=== PATIENT | female | born 1960 | race Caucasian/White ===

== ENCOUNTER 2018-12-15 01:16 | Outpatient (CLI) | payer BC, SELFPAY ==
--- NOTE | 2018-12-15 11:22 | DI.MAMMO_ITS ---
EXAM: MG MAMMO SCREENING CLINICAL HISTORY: SCREENING, Z12.31. TECHNIQUE: Mammograms were interpreted according to the usual protocol including computer analysis w [employer] CAD system, tomosynthesis and C-view imaging. COMPARISON: Comparison is made with prior exams. FINDINGS: The breast tissue is of fatty radiodensity. There is no mass. There are no suspicious calcifications and there has been no appreciable interval change when compared with prior images. IMPRESSION: No evidence of malignancy, category 1, yearly screening mammography is recommended. BI-RADS category A. BI-RADS Cat 1 - Negative. Breast Density - Category A - Almost entirely fatty.
== END 2018-12-15 01:36 ==
PROVIDERS: PCP Family Medicine; Visit Provider Nurse Practitioner Family
DX: Z12.31 Encounter for screening mammogram for malignant neoplasm of breast (principal)
CPT/HCPCS: 77063; 77067

== ENCOUNTER 2019-06-02 08:18 | Outpatient (REF) | payer BC, SELFPAY ==
[2019-06-02 13:10] LABS: ALT 37 U/L (14-59); Anion Gap 5.9 mmol/L (3-11); BUN 16 mg/dL (7-18); CO2 32.1 mmol/L (21.0-32.0); Calcium 9.1 mg/dL (8.5-10.1); Calculated LDL 176 mg/dL (<100); Chloride 101 mmol/L (98-107); Cholesterol 261 mg/dL (<200); Glucose 168 mg/dL (74-106); HDL Cholesterol 66 mg/dL (40-60); Potassium 5.3 mmol/L (3.5-5.1); Sodium 139 mmol/L (136-145); Triglyceride 95 mg/dL (<150)
== END 2019-06-02 08:38 ==
LOC: NCHCN 08:18
PROVIDERS: PCP Family Medicine; Visit Provider Nurse Practitioner Family
DX: E78.5 Hyperlipidemia, unspecified (principal); E11.9 Type 2 diabetes mellitus without complications
CPT/HCPCS: 80048; 80061; 84460

== ENCOUNTER 2020-06-30 15:58 | Outpatient (REF) | payer BC, SELFPAY ==
[2020-06-30 15:04] LABS: ALT 39 U/L (14-59); AST 21 U/L (15-37); Anion Gap 11.9 mmol/L (3-11); BUN 15 mg/dL (7-18); CO2 28.1 mmol/L (21.0-32.0); CREATININE 0.8 mg/dL (0.55-1.02); Calcium 9.1 mg/dL (8.5-10.1); Calculated LDL 72 mg/dL (<100); Chloride 101 mmol/L (98-107); Cholesterol 159 mg/dL (<200); Glucose 159 mg/dL (74-106); HDL Cholesterol 68 mg/dL (40-60); Potassium 4.7 mmol/L (3.5-5.1); Sodium 141 mmol/L (136-145); Triglyceride 95 mg/dL (<150)
== END 2020-06-30 15:59 | disposition home or self-care (01) ==
LOC: NCHCN 15:58
PROVIDERS: PCP Family Medicine; Visit Provider Nurse Practitioner Family
DX: E78.5 Hyperlipidemia, unspecified (principal); E11.9 Type 2 diabetes mellitus without complications
CPT/HCPCS: 80048; 80061; 84450; 84460

== ENCOUNTER 2020-08-04 15:36 | Outpatient (REF) | payer BC, SELFPAY ==
--- NOTE | 2020-08-04 14:05 | PAPFT_PTH ---
PATIENT: Sari Ramsey LOC: [facility]#:[id number] AGE/SX: 60/F ROOM: RE08/04/[address]: Gloria Harper : 1960 BED: DIS: 08/04/2020 SPEC #: [id number] RECD: 08/07/20 12:56 STATUS: DESTINY REDeepa #: [id number] GREGORY: 08/04/20 14:[address]: Gloria Harper DEPT: [facility] Cytology RECD BY: Joyce Daniels ENTERED: 08/07/20 12:57 SP TYPE: PAPFT OTHR DR: Niesha France Tissues: 1 - CX/ENDOCX FOR PAP SMEARS Procedures: PAP THIN PREP/UVM Screening HPV DNA PROBE Comments: [id number]
== END 2020-08-04 15:37 | disposition home or self-care (01) ==
LOC: NCHCN 15:36
PROVIDERS: PCP Family Medicine; Visit Provider Nurse Practitioner Family
DX: Z00.00 Encounter for general adult medical examination without abnormal findings (principal); Z12.4 Encounter for screening for malignant neoplasm of cervix; Z01.419 Encounter for gynecological examination (general) (routine) without abnormal findings; Z11.51 Encounter for screening for human papillomavirus (HPV)
CPT/HCPCS: 88142; 87624

== ENCOUNTER 2020-08-28 02:36 | Outpatient (CLI) | payer BC, SELFPAY ==
--- NOTE | 2020-08-28 | DI.MAMMO_ITS ---
Exam(s) MAMMO SCREENING EXAM: MAMMO SCREENING CLINICAL HISTORY: SCREENING, Z12.39 TECHNIQUE: Bilateral full field digital CC and MLO mammographic images were obtained with 3D tomosyn thesis and utilizing computer aided detection (CAD). COMPARISON: Available for comparison. FINDINGS: Masses/Architectural Distortion: None seen. Microcalcifications: No suspicious pleomorphic-type are seen. Skin Thickening/Nipple Retraction: None. IMPRESSION: 1. No significant interval change with no specific features of malignancy noted. 2. Unless there is more urgent need, screening mammography is recommended, as per [place] guidelines. BI-RADS Category 1 - Negative Breast Density - Category A - Almost entirely fatty Breast density category C or D implies that the patient has dense breast tissue. Dense breast tissue is very common and is not abnormal but dense breast tissue can make it harder to find cancer on a ma mmogram. Also, dense breast tissue may increase their breast cancer risk. This information about the result of the mammogram report was provided to the patient to raise their awareness. Use this report when you speak with the patient about their risks for breast cancer, which includes their family hist ory. At that time, you may recommend for more screening tests (Ultrasound or MRI) as they might be us eful based on their risk. A negative radiographic report should not delay biopsy if a dominant or clinically suspicious mass is present. Up to ten percent of cancers are not identified on mammography. A negative report may reinforce clinical impression. Adenosis and dense breasts may obscure an underlying neoplasm. False positive reports average 6 to 10%. Patient will receive a letter notifying them of these results.
== END 2020-08-28 02:56 ==
PROVIDERS: PCP Family Medicine; Visit Provider Nurse Practitioner Family
DX: Z12.31 Encounter for screening mammogram for malignant neoplasm of breast (principal)
CPT/HCPCS: 77063; 77067

== ENCOUNTER 2021-05-15 14:03 | Outpatient (REF) | payer BC, SELFPAY ==
[2021-05-15 15:29] LABS: HCT 43.1 % (36.0-46.0); HGB 14.3 g/dL (11.2-15.7); MCH 29.2 pg (27.0-33.0); MCHC 33.2 % (32.0-36.0); MPV 12.5 fL (8.0-11.0); Platelet Count 261 10^3/uL (130-400); RDW-SD 38.5 fL; WBC 7.25 10^3/uL (4.4-10.8)
[2021-05-15 15:38] LABS: ALT 74 U/L (14-59); AST 40 U/L (15-37); Albumin 3.7 g/dL (3.4-5.0); Alkaline Phosphatase 75 U/L (46-116); BUN 11 mg/dL (7-18); Bilirubin, Total 0.5 mg/dL (0.2-1.0); CREATININE 0.9 mg/dL (0.55-1.02); Chloride 102 mmol/L (98-107); Glucose 227 mg/dL (74-106); Potassium 4.3 mmol/L (3.5-5.1); Sodium 141 mmol/L (136-145); Total Protein 6.9 g/dL (6.4-8.2)
[2021-05-15 15:45] LABS: Hemoglobin A1C 8.3 % (<5.7)
== END 2021-05-15 14:04 | disposition home or self-care (01) ==
LOC: NCHCN 14:03
PROVIDERS: PCP Family Medicine; Visit Provider Nurse Practitioner Family
DX: E11.9 Type 2 diabetes mellitus without complications (principal); E66.9 Obesity, unspecified; M25.512 Pain in left shoulder
CPT/HCPCS: 80053; 85027; 83036

== ENCOUNTER → 2022-01-09 12:51 | Outpatient (CLI) | payer BC, SELFPAY ==
--- NOTE | 2022-01-09 12:49 | DI.RAD_ITS ---
Exam(s) XR RIBS LT W PA LAT CHEST EXAM: XR RIBS LT W PA LAT CHEST CLINICAL HISTORY: LEFT SIDED RIB PAIN R07.81, CONCERN FOR POSSIBLE FX. TECHNIQUE: 2D digital imaging was performed. COMPARISON: CR LEFT SHOULDER COMPLETE from 01/31/2016 FINDINGS: Total 6 views: 4 views left rib cage and 2 view chest x-ray LEFT RIB CAGE-FOUR VIEWS: There is a mild irregularity at the costochondral junction of the 8th left rib, possibly representing fracture at this level. Chest x-ray-two views: Heart size normal. Mediastinum is not widened. No infiltrates nor pleural ef fusions. No pneumothorax. Moderately elevated right hemidiaphragm noted. Healed fracture of the le ft humerus head-neck noted. IMPRESSION: Left 8th rib finding as described above, subtle but possibly representing fracture at costochondral j unction. Correlation with site of tenderness is recommended. No acute pulmonary findings. DATA REPOSITORY: RADIATION DOSE DELIVERED:
== END ==
PROVIDERS: PCP Family Medicine; Visit Provider Physician Assistant Medical
DX: R07.81 Pleurodynia (principal)
CPT/HCPCS: 71046; 71100

== ENCOUNTER 2022-03-07 11:37 | Outpatient (REF) | payer BC, SELFPAY ==
[2022-03-07 14:23] LABS: Abs Immature Grans 0.04 10^3/uL (0.0-0.06); Absolute Basophil Count 0.03 10^3/uL (0.0-0.2); Absolute Eosinophil Count 0.07 10^3/uL (0.0-0.7); Absolute Monocyte Count 0.63 10^3/uL (0.1-0.8); Absolute Neutrophil Count 6.95 10^3/uL (1.2-6.7); Basophils % 0.3; Eosinophils % 0.7; HCT 51.2 % (36.0-46.0); HGB 17.2 g/dL (11.2-15.7); Immature Grans % 0.4; Lymphocytes % 21.4; MCH 29.2 pg (27.0-33.0); MCHC 33.6 % (32.0-36.0); MCV 87 fL (80-95); MPV 11.8 fL (8.0-11.0); Monocytes % 6.4; Neutrophils % 70.8; Platelet Count 346 10^3/uL (130-400); RBC 5.89 10^6/uL (3.93-5.22); RDW 11.9 % (11.7-14.6); RDW-SD 38.2 fL; WBC 9.82 10^3/uL (4.4-10.8)
[2022-03-07 14:34] LABS: ALT 61 U/L (14-59); AST 29 U/L (15-37); Albumin 4.3 g/dL (3.4-5.0); Alkaline Phosphatase 91 U/L (46-116); Anion Gap 8.3 mmol/L (3-11); BUN 14 mg/dL (7-18); Bilirubin, Total 0.6 mg/dL (0.2-1.0); CO2 28.7 mmol/L (21.0-32.0); CREATININE 0.9 mg/dL (0.55-1.02); Calcium 9.5 mg/dL (8.5-10.1); Chloride 98 mmol/L (98-107); Estimated GFR 73.19 (mL/min/1.73m2); Glucose 138 mg/dL (74-106); Lipase 65 U/L (73-393); Potassium 4.4 mmol/L (3.5-5.1); Sodium 135 mmol/L (136-145)
== END 2022-03-07 11:38 | disposition home or self-care (01) ==
LOC: NCHCN 11:37
PROVIDERS: PCP Family Medicine; Visit Provider Physician Assistant Medical
DX: R11.2 Nausea with vomiting, unspecified (principal); Q79.1 Other congenital malformations of diaphragm
CPT/HCPCS: 80053; 83690; 85025

== ENCOUNTER → 2022-03-07 13:14 | Outpatient (CLI) | payer BC, SELFPAY ==
--- NOTE | 2022-03-07 11:50 | DI.RAD_ITS ---
Exam(s) XR RIBS LT W PA LAT CHEST EXAM: XR RIBS LT W PA LAT CHEST CLINICAL HISTORY: H/O LT SIDED RIB FX,S22.32XA,REINJURY,EVALUATE FX R07.81 RIB PAIN TECHNIQUE: 2D digital imaging was performed. Six images are obtained. COMPARISON: CR XR RIBS LT W PA LAT CHEST from 01/09/2022 FINDINGS: MEDIASTINUM: Normal. HEART: Normal. PULMONARY VASCULATURE: Normal. LUNGS: Clear. PLEURAL SPACE: No pleural effusion or pneumothorax. BONE:Within normal limits for the patient's age. Chronic deformity of the proximal left humerus is s een. LEFT RIBS: No acute fracture is identified. OTHER FINDINGS:Normal. IMPRESSION: 1. No acute pulmonary findings. 2. No acute left rib fracture. DATA REPOSITORY: RADIATION DOSE DELIVERED:
== END ==
PROVIDERS: PCP Family Medicine; Visit Provider Physician Assistant Medical
DX: R07.81 Pleurodynia (principal)
CPT/HCPCS: 71046; 71100

== ENCOUNTER 2022-04-01 07:40 | Day surgery (SDC) | payer BC, SELFPAY ==
[2022-04-01 08:14] VITALS: BP 149/102; PULSE 94; RESP 18; TEMP 36.3; O2SAT 95
--- NOTE | 2022-04-01 08:24 | ANES.PREOP_ITS ---
General Info Date of Service Date Performed: 04/01/22 Height: 5 ft 1.81 in Weight: 103.8 kg Body Mass Index (BMI): 42.0 Surgical Procedure: Operation Date: 04/01/22 09:05 Proposed Procedure Side Surgeon p Colonoscopy/Gastroscopy Ang Pan MD Meds Allergies and Home Medications Allergies Allergy/AdvReac Type Severity Reaction Status Date / Time No Known Drug Allergies Allergy Unknown Unverified 04/01/22 08:08 Home Medication Medication Instructions Recorded aspirin 81 mg chewable tablet 81 mg PO DAILY 01/31/16 (Aspirin Low-Strength) lisinopril 5 mg tablet 5 mg PO DAILY 01/31/16 metformin 1,000 mg tablet 1,000 mg PO BID@0800,1700 01/31/16 (Glucophage) Medical Marijuana 1 dose inhalation DAILY 09/15/17 acetaminophen 500 mg tablet 500 mg PO DAILY 09/15/17 (Acetaminophen Extra Strength) atorvastatin 40 mg tablet 40 mg PO DAILY 09/15/17 empagliflozin 10 mg tablet 10 mg PO DAILY 07/06/21 (Jardiance) glipizide 5 mg tablet 5 mg PO BID 07/06/21 bisacodyl 5 mg tablet,delayed 5 mg PO ONCE #4 tabs 03/21/22 release (Dulcolax (bisacodyl)) polyethylene glycol 3350 17 17 g PO ONCE #238 grams 03/21/22 gram/dose oral powder PFSH Active Problems Active Problems: Problem Status Onset Code Elevated liver function tests R79.89 Elevated hemidiaphragm J98.6 Nausea and vomiting R11.2 Cholelithiasis K80.20 SHELLIE (obstructive sleep apnea) Screening for colon cancer Z12.11 Medical History Medical History Anxiety Chronic headaches Chronic pain Closed left humeral fracture (02/02/16) Depression Diabetes mellitus, type II Fracture of rib of left side Hyperlipidemia Marijuana use Obesity Pain in right shoulder Shoulder pain, left Medical History Comments:: Americo daily Surgical History Surgical History ankle surgery to remove flesh eating bacteria. Arthroscopy, Shoulder section x2 History of colonoscopy (~07/2011) shoulder arthroplasty skull sx Tobacco Smoking/Tobacco Use Status: Never Alcohol Alcohol Intake: current Alcohol intake frequency: a few times a month Alcohol type: wine Substance Use Substance use: Daily Substance use type: marijuana Vital Signs and Lab Results Vital Signs Most Recent Vital Signs in EMR: Most Recent Vital Signs Temp Pulse Resp BP Pulse Ox 36.3 C L 94 H 18 149/102 H 95 04/01/22 08:14 04/01/22 08:14 04/01/22 08:14 04/01/22 08:14 04/01/22 08:14 Point of Care Results Point of Care Results: Finger Stick Blood Glucose 134 04/01/22 07:49 Lab Results Blood Type / Crossmatch: No Data to Display Complete Blood Count: White Blood Count 9.82 10^3/uL (4.4-10.8) 03/07/22 11:15 Red Blood Count 5.89 10^6/uL (3.93-5.22) H 03/07/22 11:15 Hemoglobin 17.2 g/dL (11.2-15.7) H 03/07/22 11:15 Hematocrit 51.2 % (36.0-46.0) H 03/07/22 11:15 Platelet Count 346 10^3/uL (130-400) 03/07/22 11:15 Complete Metabolic Panel: Sodium 135 mmol/L (136-145) L 03/07/22 11:15 Potassium 4.4 mmol/L (3.5-5.1) 03/07/22 11:15 Chloride 98 mmol/L (98-107) 03/07/22 11:15 Carbon Dioxide 28.7 mmol/L (21.0-32.0) 03/07/22 11:15 BUN 14 mg/dL (7-18) 03/07/22 11:15 Creatinine 0.9 mg/dL (0.55-1.02) 03/07/22 11:15 Est GFR (CKD-EPI 2020) 73.19 (mL/min/1.73m2) 03/07/22 11:15 Calcium 9.5 mg/dL (8.5-10.1) 03/07/22 11:15 Albumin 4.3 g/dL (3.4-5.0) 03/07/22 11:15 Glucose 138 mg/dL (74-106) H 03/07/22 11:15 Liver Function Panel: Alanine Aminotransferase (ALT/SGPT) 61 U/L (14-59) H 03/07/22 1 1:15 Aspartate Amino Transf (AST/SGOT) 29 U/L (15-37) 03/07/22 11:15 Coagulation Panel: No Data to Display Cardiac Panel: No Data to Display Arterial Blood Gas: No Data to Display Venous Blood Gas: No Data to Display Pancreas Panel: Lipase 65 U/L (73-393) 03/07/22 11:15 Thyroid Panel: No Data to Display Infectious Disease: No Data to Display Blood Cultures: No Data to Display Toxicology Panel: No Data to Display Anesthesia Assessment and Plan Anesthesia History Personal History: No History of Anesthesia Complications Family History: No Family History of Anesthesia Complications Exercise Tolerance Exercise Tolerance: Metabolic Equivalents<4 Pertinent Negatives Pertinent Negatives: No Symptoms of GERD Cardiac & Pulmonary Exam Cardiac Exam: Normal S1/S2 Heart Sounds Pulmonary Exam: Clear Bilateral Breath Sounds Implantable Cardiac Device Does patient have a Pacemaker or an ICD?: No Airway Exam Known Difficult Airway: No Mallampati Class: 3 Mouth Opening: Normal (> 3cm) Thyromental Distance: Greater than 3 cm Neck Range of Motion: Full ROM Neck Circumference: Normal Teeth Condition: Normal Dentition ASA Classification ASA Score: ASA 2 Emergency Case?: No NPO Status NPO Status: NPO Clears >2 hours, Solids >8 hours Anesthesia Plan Resuscitation Status: Full Code Anesthesia Technique: General Anesthesia Airway Planned: Natural Airway Monitors Used: Standard Monitors
[2022-04-01] MEDS: Lactated Ringers 1,000 ML 80 ML IV (08:37)
[2022-04-01 08:40] VITALS: BMI 42.0
--- NOTE | 2022-04-01 08:48 | COLE_ITS ---
Date of service: 04/01/22 Time of Service: 09:15 Colonoscopy Report Procedure Description: Procedures performed: 1. Colonoscopy 2. Hot snare polypectomy Preoperative diagnosis: Surveillance colonoscopy Postoperative diagnosis: Rectal polyp, sigmoid diverticulosis Surgeon: Mehreen Pan Anesthesia: Kevyn Indication for procedure: 61-year-old woman with no family history of colon cancer, no lower?GI symptoms/changes, prior colonoscopy normal. Intra-abdominal surgical history of 2 C-sections. Findings: Normal terminal ileum. Isolated sigmoid diverticular disease. A single isolated sessile 3-5 mm rectal polyp was removed with hot snare technique. Surveillance/follow-up recommendations: 7-10 years assuming it was a small adenoma removed from the rectum. Complications: None Blood loss: Minimal Procedure in detail: Written consent was obtained from the patient who was in agreement with the risks, benefits and indications of the procedure.? The patient was turned from upper endoscopy (see separate procedure note) and kept in left lateral decubitus position and anesthesia was continued and I started the colonoscopy portion of the procedure. Digital rectal exam and visual examination was performed and within normal limits.? A well?lubricated colonoscope was advanced without difficulty all the way to the cecum identified by the ileocecal valve, and triangular folds and appendiceal orifice.? Terminal ileum was normal.? It was then slowly withdrawn.? ? Retroflexion was performed in the rectum.? The findings/interventions are noted above. The scope was then removed and the patient tolerated the procedure well and was then taken back to the PACU in hemodynamically stable condition.
--- NOTE | 2022-04-01 08:48 | W.PM.ENDDOP ---
Date of service: 04/01/22 Time of Service: 09:00 Endoscopy Report PROCEDURE DESCRIPTION: Procedures performed: 1.? Esophagogastroduodenoscopy with cold forceps biopsies Preoperative diagnosis: Anorexia, daily nausea Postoperative diagnosis: Erosive gastritis, small type I sliding hiatal hernia, minimal (LA grade A) esophagitis Surgeon: Mehreen Pan Anesthesia: Kevyn Indication for procedure: 61-year-old woman has been having anorexia and daily now nausea as well as postprandial fullness for almost a decade that she attributes to being since the loss of her daughter secondary to leukemia. She does not have abdominal pain associated. Findings: - D3, D2 and D1 - normal - no inflammation or ulcers - Pylorus - patent.? No bile reflux visualized during procedure. - Antrum - looks mildly inflamed. 1 area of a small erosion/minimal ulceration - biopsies taken to rule out incidental H. pylori and separately to assess this erosion. - Stomach Body -normal visually.? Biopsies taken to rule out occult H. pylori. - Fundus -? Normal.? No polyps. - Hiatus - Retroflexion showed a very?small type I sliding hiatal hernia (~1 cm slide) - GE junction had a polypoid appearance to it which may be a normal variant but this was biopsied with cold forceps technique because it looked unusual. - Esophagus - there were a couple of minimal/tiny, small mucosal breaks above the GE junction consistent with esophagitis (Grade A).? No stricture or evidence of Olivera's.? The mid and proximal esophagus did not look inflamed however it had a ring?appearance to it which made me think of eosinophilic esophagitis. - Cords/hypopharynx - Normal OVERALL - The findings in the antrum could be contributing to her symptoms, though her gallbladder is probably a more suspicious etiology. She should follow-up with either her PCP or in the surgery office to discuss these biopsy results and decide whether any management strategies are necessary. Surveillance/follow-up recommendations: Pending biopsy results -if the antrum erosion is truly an ulcer, a repeat EGD after medical management could be considered in this patient population. Complications: None Blood loss: Minimal Specimens:? YES Procedure in detail: Written consent was obtained from the patient who was in agreement with the risks, benefits and indications of the procedure.? We went to the endoscopy suite and laid the patient in left lateral decubitus position.? Anesthesia was administered which was tolerated well.? A timeout was performed and when we are all in agreement we began the procedure. A well?lubricated endoscope was advanced without difficulty down the esophagus, into the stomach, through a patent pylorus and into the duodenum.? It was then slowly pulled back with findings noted above. The scope was then removed and the patient tolerated the procedure well and was then turned for the colonoscopy portion of the procedure (see separate procedure note)
--- NOTE | 2022-04-01 08:59 | STOM_PTH ---
PATIENT: Sari Ramsey LOC: [facility] U#:[id number] AGE/SX: 61/F ROOM: RE04/01/[address]: Ang Pan : 1960 BED: DIS: 04/01/2022 SPEC #: [id number] RECD: 04/01/22 12:36 STATUS: BINABrenda RE #: [id number] GREGORY: 04/01/22 08:[address]: Ang Pan DEPT: Surgical Specimen RECD BY: Joyce Daniels ENTERED: 04/01/22 12:38 SP TYPE: STOMACH OTHR DR: Gloria Harper Tissues: 1 - STOMACH BIOPSY 2 - STOMACH BIOPSY 3 - STOMACH BIOPSY 4 - ESOPHAGUS BIOPSY 5 - ESOPHAGUS BIOPSY 6 - ESOPHAGUS BIOPSY 7 - BIOPSY BOWEL Procedures: GROSS AND MICRO LEVEL 4 Comments: [id number]
[2022-04-01 10:01] VITALS: BP 125/82; PULSE 87; RESP 16; TEMP 36.6; O2SAT 95
--- NOTE | 2022-04-01 10:08 | W.ANESPOSTOP ---
Postoperative Evaluation Date, Time and Location Date Performed: 04/08/22 Time Performed: 09:40 Patient Location: Day Surgery Unit Vital Signs Most Recent Imported Vital Signs: Most Recent Vital Signs Temp Pulse Resp BP Pulse Ox 36.6 C 87 16 125/82 95 04/01/22 10:01 04/01/22 10:01 04/01/22 10:01 04/01/22 10:01 04/01/22 10:01 Pain Score Most Recent Pain Score: Most Recent Pain Score Pain Level 0 04/01/22 10:01 Assessment Mental Status: Arousable with meaningful communication Airway and Respiratory Function: Patent airway with normal (patient baseline) respiratory exam Cardiovascular Function: Hemodynamically Stable Hydration Status: Adequately Hydrated Nausea & Vomiting: No Nausea or Vomiting Pain: Pt. Denies Any Pain Peripheral Nerve Block: Patient did not receive a nerve block
== END 2022-04-01 10:30 | disposition home or self-care (01) ==
PROVIDERS: PCP Nurse Practitioner Family; Visit Provider Student in an Organized Health Care Education/Training Program
PROC: (CPT 45385; principal; 2022-04-01 09:00)
DX: Z12.11 Encounter for screening for malignant neoplasm of colon (principal); K57.30 Diverticulosis of large intestine without perforation or abscess without bleeding; K62.1 Rectal polyp; E11.9 Type 2 diabetes mellitus without complications; R63.0 Anorexia; R11.0 Nausea; K29.60 Other gastritis without bleeding; K44.9 Diaphragmatic hernia without obstruction or gangrene; K20.90 Esophagitis, unspecified without bleeding; K22.89 Other specified disease of esophagus
CPT/HCPCS: 45385; 43239; 88305

== ENCOUNTER 2022-04-17 09:56 | Day surgery (SDC) | payer BC, SELFPAY ==
[2022-04-17] VITALS (11 sets, daily range): BP systolic 101–144; BP diastolic 54–88; PULSE 82–93; RESP 11–27; TEMP 36.1–36.7; O2SAT 94–98; BMI 41.8
--- NOTE | 2022-04-17 07:15 | W.ANESPRE ---
General Info Date of Service Date Performed: 04/17/22 Height: 5 ft 1.75 in Weight: 103 kg Body Mass Index (BMI): 41.8 Surgical Procedure: Operation Date: 04/17/22 11:55 Proposed Procedure Side Surgeon p Cholecystectomy Laparoscopic, Possible Cholangiogram Ang Pan MD Meds Allergies and Home Medications Allergies Allergy/AdvReac Type Severity Reaction Status Date / Time No Known Drug Allergies Allergy Unknown Verified 04/17/22 10:08 Home Medication Medication Instructions Recorded aspirin 81 mg chewable tablet 81 mg PO DAILY 01/31/16 (Aspirin Low-Strength) lisinopril 5 mg tablet 5 mg PO DAILY 01/31/16 metformin 1,000 mg tablet 1,000 mg PO BID@0800,1700 01/31/16 (Glucophage) Medical Marijuana 1 dose inhalation DAILY 09/15/17 atorvastatin 40 mg tablet 40 mg PO DAILY 09/15/17 glipizide 5 mg tablet 5 mg PO BID 07/06/21 acetaminophen 500 mg tablet 500 mg PO PRN 04/08/22 (Acetaminophen Extra Strength) empagliflozin 10 mg tablet 25 mg PO DAILY 04/08/22 (Jardiance) ondansetron HCl 4 mg tablet 4 mg PO Q6H PRN nausea and 04/09/22 vomiting #10 tabs pantoprazole 40 mg tablet,delayed 40 mg PO DAILY #30 tabs 04/09/22 release (Protonix) Current Visit Medications: Current Medications Generic Name Dose Route Start Last Admin Trade Name Freq PRN Reason Stop Dose Admin Acetaminophen 1,000 mg 04/17/22 06:00 Acetaminophen 500 Mg Tab PO 05/16/22 23:59 PREOP VASQUEZ Gabapentin 600 mg 04/17/22 06:00 Gabapentin 300 Mg Cap PO 05/16/22 23:59 PREOP VASQUEZ Ringer's Solution 1,000 mls @ 80 mls/hr 04/17/22 06:00 IV 05/16/22 23:59 INFUSION VASQUEZ Cefazolin Sodium/Dextrose 2 gm in 50 mls @ 100 mls/hr 04/17/22 06:00 Ancef Duplex IVPB 05/16/22 23:59 PREOP VASQUEZ IV Miscellaneous Supplies 1 each 04/17/22 06:00 Iv Access IV 05/16/22 23:59 DIRECTED VASQUEZ Sodium Chloride 0 ml 04/17/22 06:00 Normal Saline Flush 10 Ml Syr IV 05/16/22 23:59 PRN PRN Sodium Chloride 0 ml 04/17/22 06:00 Normal Saline 10 Ml Vial IJ 05/16/22 23:59 DIRECTED PRN Sterile Water 0 ml 04/17/22 06:00 Water,Injection,Sterile 10 Ml Vial IJ 05/16/22 23:59 DIRECTED PRN PFSH Active Problems Active Problems: Problem Status Onset Code Hiatal hernia with GERD K21.9, K44.9 Erosive gastritis K29.60 CABRERA (nonalcoholic steatohepatitis) K75.81 GERD with esophagitis K21.00 Tubular adenoma of colon D12.6 Elevated liver function tests R79.89 Elevated hemidiaphragm J98.6 Nausea and vomiting R11.2 Cholelithiasis K80.20 SHELLIE (obstructive sleep apnea) Screening for colon cancer Z12.11 Medical History Medical History Anxiety Chronic headaches Chronic pain Closed left humeral fracture (02/02/16) Depression Diabetes mellitus, type II Fracture of rib of left side Hyperlipidemia Marijuana use Obesity Pain in right shoulder Shoulder pain, left Medical History Comments:: Americo daily Surgical History Surgical History (Updated 04/08/22 @ 15:08 by Missy Zapien RN) ankle surgery to remove flesh eating bacteria. Arthroscopy, Shoulder section x2 History of colonoscopy (~07/2011) 03/2022 History of esophagogastroduodenoscopy (EGD) (~04/01/22) shoulder arthroplasty skull sx Tobacco Smoking/Tobacco Use Status: Never Alcohol Alcohol Intake: current Alcohol intake frequency: a few times a month Alcohol type: wine Substance Use Substance use: Daily Substance use type: marijuana Vital Signs and Lab Results Vital Signs Most Recent Vital Signs in EMR: Temp Pulse Resp BP Pulse Ox 36.6 C 93 H 16 144/88 H 97 04/17/22 10:16 04/17/22 10:16 04/17/22 10:16 04/17/22 10:16 04/17/22 10:16 Lab Results Blood Type / Crossmatch: No Data to Display Complete Blood Count: No Data to Display Complete Metabolic Panel: No Data to Display Liver Function Panel: No Data to Display Coagulation Panel: No Data to Display Cardiac Panel: No Data to Display Arterial Blood Gas: No Data to Display Venous Blood Gas: No Data to Display Pancreas Panel: No Data to Display Thyroid Panel: No Data to Display Infectious Disease: No Data to Display Blood Cultures: No Data to Display Toxicology Panel: No Data to Display Anesthesia Assessment and Plan Anesthesia History Personal History: No History of Anesthesia Complications Family History: No Family History of Anesthesia Complications Exercise Tolerance Exercise Tolerance: Metabolic Equivalents>4 Cardiac & Pulmonary Exam Cardiac Exam: Normal S1/S2 Heart Sounds Pulmonary Exam: Clear Bilateral Breath Sounds Implantable Cardiac Device Does patient have a Pacemaker or an ICD?: No Airway Exam Known Difficult Airway: No Mallampati Class: 3 Mouth Opening: Normal (> 3cm) Thyromental Distance: Greater than 3 cm Neck Range of Motion: Full ROM Neck Circumference: Normal Teeth Condition: Normal Dentition ASA Classification ASA Score: ASA 2 Emergency Case?: No NPO Status NPO Status: NPO Clears >2 hours, Solids >8 hours Anesthesia Plan Resuscitation Status: Full Code Anesthesia Technique: General Anesthesia Airway Planned: Endotracheal Tube Monitors Used: Standard Monitors Preoperative Comments:: 61 yo female for lap giovanna. Sig PMHx: SHELLIE (CPAP), DM (last A1c 7%, empagliflozin, glipizide, metformin), HTN (lisinopril), GERD (recent EGD with esophagitis, pantoprazole for the last week with great improvment in symptoms), CABRERA, anxiety, depression, never smoker, daily cannabis, occ EtOH. Previous Anes: - egd/colo, prop only, no issues. - shoulder scope, masked with OPA, 2 attempts: first with mac 3, but moved on to video with grade 1. - humeral fx, Mac 3 grade 2, masked with OPA.
[2022-04-17] MEDS: Gabapentin 300 MG CAP 600 MG PO (10:14)
[2022-04-17] MEDS: Acetaminophen 500 MG TAB 1000 MG PO (10:14)
[2022-04-17] MEDS: Lactated Ringers 1,000 ML 80 ML IV (10:38)
--- NOTE | 2022-04-17 11:16 | W.SURGCON ---
Date of service: 04/17/22 Time of Service: 11:00 Assessment and Plan Assessment and plan (1) Cholelithiasis: Status: Acute Assessment and plan: 61-year-old woman with symptomatic cholelithiasis, probable chronic cholecystitis. I certainly agree with her that the right upper quadrant discomfort after eating is probably because of this. I am also quite suspicious that her persistent nausea and poor appetite is also mostly related to this. We had a long discussion about gallbladder purpose, function and the biliary/digestive track relationships. We talked about the unlikely but possibility of bile duct injury and bile leaking after the procedure but most importantly the biggest risk for surgery is having persistent symptoms despite gallbladder removal. She understands the potential risks but also understands the potential benefits and indications for surgery and does wish to proceed. Recent LFTs were normal. No mention of ductal dilatation on ultrasound. Plan: Laparoscopic cholecystectomy History of Present Illness History of Present Illness Chief Complaint: Symptomatic gallstones Narrative: Patient with longer standing, postprandial right upper quadrant discomfort and years of poor?appetite. Ultrasound showing cholelithiasis. Since her upper endoscopy a few weeks ago she is feeling drastically better on the new medications we prescribed but, she continues to have the post-eating discomfort in the right upper quadrant despite. Some of her nausea is improved and she notices the difference but she continues to have a mild amount. She is confident that the discomfort is from her gallbladder and that the persistent nausea is related to it as well. PFSH All Active Problems Hiatal hernia with GERD (Acute) Erosive gastritis (Acute) CABRERA (nonalcoholic steatohepatitis) (Acute) GERD with esophagitis (Acute) Tubular adenoma of colon (Acute) Elevated liver function tests (Acute) Elevated hemidiaphragm (Acute) Nausea and vomiting (Acute) Cholelithiasis (Acute) SHELLIE (obstructive sleep apnea) (Chronic) Screening for colon cancer (Acute) Medical History Anxiety Chronic headaches Chronic pain Closed left humeral fracture (02/02/16) Depression Diabetes mellitus, type II Fracture of rib of left side Hyperlipidemia Marijuana use Obesity Pain in right shoulder Shoulder pain, left Surgical History (Updated 04/08/22 @ 15:08 by Missy Zapien RN) ankle surgery to remove flesh eating bacteria. Arthroscopy, Shoulder section x2 History of colonoscopy (~07/2011) 03/2022 History of esophagogastroduodenoscopy (EGD) (~04/01/22) shoulder arthroplasty skull sx Social History Smoking/Tobacco Use Status: Never Smoking risk assessment performed?: Yes Alcohol Intake: current Alcohol Intake frequency: a few times a month Alcohol type: wine Drug use: Daily Substance use type: marijuana Current gender identity: female Do you feel safe at home: Yes Do you feel safe in your relationship?: Yes Exam Narrative Exam Narrative: General: Nontoxic, comfortable and interactive Neuro: Alert and oriented x3 Psych: Appropriate mood and affect, good insight and understanding into condition Chest: Nonlabored breathing Heart: Regular Abdomen: Soft, nondistended and nontender. She does not have a Jain sign. Results Last Vital Signs Temp 97.9 F 04/17/22 10:16 Pulse 93 H 04/17/22 10:16 Resp 16 04/17/22 10:16 BP 144/88 H 04/17/22 10:16 Pulse Ox 97 04/17/22 10:16
[2022-04-17] MEDS: ceFAZolin 2 GM/50 ML BAG IVPB (11:55)
[2022-04-17] MEDS: Heparin 5,000 UNITS/ML VIAL 5000 UNITS (12:16)
--- NOTE | 2022-04-17 12:45 | GB_PTH ---
PATIENT: Sari Ramsey LOC: [facility] U#:[id number] AGE/SX: 61/F ROOM: RE04/17/[address]: Ang Pan : 1960 BED: DIS: 04/17/2022 SPEC #: [id number] RECD: 04/17/22 18:14 STATUS: DESTINY RE #: [id number] GREGORY: 04/17/22 12:[address]: Ang Pan DEPT: Surgical Specimen RECD BY: Joyce Daniels ENTERED: 04/17/22 18:15 SP TYPE: GB OTHR DR: Gloria Harper Tissues: 1 - GALLBLADDER Procedures: GROSS AND MICRO LEVEL 3 Comments: [id number]
[2022-04-17] MEDS: Bupivacaine 0.25% Pres-Free 30 ML VIAL (12:56)
--- NOTE | 2022-04-17 13:03 | ROE_ITS ---
Date of service: 04/17/22 Time of Service: 13:03 Operative Note Operative Note Refer to Anesthesia Record Procedure Description: Procedure performed: Laparoscopic cholecystectomy ?Preoperative diagnosis: Symptomatic cholelithiasis ?Postop diagnosis: Same ?Surgeon: Mehreen? Raymon Pan Embroidery Machine Operator: Mel ?Anesthesia: General ?Anesthesia provider: Alfred ?Indication for procedure: 61-year-old woman with chronic postprandial right upper quadrant discomfort and chronic anorexia in the setting of known cholelith iasis. ?Findings: Non-? distended and noninflamed gallbladder.? Normal biliary anatomy. ?Estimated blood loss: Scant ?Complications: None ?Drains: None ?Procedure details: ?The patient gave written consent and was in agreement with the risks, indica tions and benefits of the procedure.? The patient was taken to the operating room and laid supine with arms outstretched.? Anesthesia was administered which was tolerated very well.? Antibiotics have been given.? DVT prophylaxis have been given.? We performed a timeout and when we were all in agreement I began the case. ?We prepped and draped the abdomen in sterile fashion.? I used a Veress needle at the umbilicus.? A 5 mm Optiview port was placed at the umbilicus without any difficulty under direct visualization.? Diagnostic laparoscopy did not reveal any abnormalities within the peritoneal cavity except for a liver that appears to have early cirrhotic changes.? I placed 5 mm ports laterally under direct visualization.? 12 mm port in the epigastrium under visualization and then focused my attention on the gallbladder.? Underneath the right lobe of the liver I was able to easily find a non-inflamed gallbladder.? I was able to grasp this at the fundus and retracted it cephalad towards the patient's left shoulder without any difficulty.? This nicely exposed the cystic plate structures.?? Using a combination of blunt and sharp dissection I was able to completely expose the cystic duct and the cystic artery.? I cleaned up the rest of the cystic plate and a small posterior branch of the cystic artery was the only structure seen.? I clipped these in standard/usual fashion.? And then I divided them. I then removed the gallbladder off the liver bed with electrocautery and placed the specimen in an Endo Catch bag and removed from the abdomen.? Some small stones were spilled while removing the gallbladder and laparoscopic irrigation was used to wash/suction these out from the pericolic gutter and behind the liver. I checked the liver bed for hemostasis and it was excellent.? There was no bile leaking from the liver bed. The laparoscopic irrigation was clear and we performed a second look along the gutters and search of any small stones that might of been missed and none were seen. I closed the 12 mm port through the fascia with 0 Vicryl.? The remaining 5mm ports were removed.? Skin was closed with absorbable sutures and Dermabond placed. Sponge, instrument and sharps counts were correct x3.? Patient was extubated and taken to the PACU in hemodynamically stable condition.
[2022-04-17] MEDS: HYDROmorphone 2 MG/ML SYR IVP ×2 (14:06→14:20)
[2022-04-17] MEDS: Normal Saline 10 ML VIAL IJ (14:06)
--- NOTE | 2022-04-17 14:30 | W.ANESPOSTOP ---
Postoperative Evaluation Date, Time and Location Date Performed: 04/17/22 Time Performed: 14:30 Patient Location: PACU Vital Signs Most Recent Imported Vital Signs: Most Recent Vital Signs Temp Pulse Resp BP Pulse Ox 36.6 C 86 20 111/62 96 04/17/22 14:20 04/17/22 14:20 04/17/22 14:20 04/17/22 14:20 04/17/22 14:20 Pain Score Most Recent Pain Score: Most Recent Pain Score Pain Level 5 04/17/22 14:20 Assessment Mental Status: Awake (Alert & Oriented to Patient Baseline) Airway and Respiratory Function: Patent airway with normal (patient baseline) respiratory exam Cardiovascular Function: Hemodynamically Stable Hydration Status: Adequately Hydrated Nausea & Vomiting: No Nausea or Vomiting Pain: Pain is tolerable per patient Peripheral Nerve Block: Patient did not receive a nerve block
== END 2022-04-17 16:41 | disposition home or self-care (01) ==
PROVIDERS: PCP Nurse Practitioner Family; Visit Provider Student in an Organized Health Care Education/Training Program
PROC: 0FT44ZZ Resection of Gallbladder, Percutaneous Endoscopic Approach (ICD-10-PCS; CPT 47562; principal; 2022-04-17 11:45)
DX: K80.10 Calculus of gallbladder with chronic cholecystitis without obstruction (principal); E11.9 Type 2 diabetes mellitus without complications; G47.33 Obstructive sleep apnea (adult) (pediatric); K75.81 Nonalcoholic steatohepatitis (NASH); K21.9 Gastro-esophageal reflux disease without esophagitis
CPT/HCPCS: 47562; 88304; J0131; J0690; J1100; J1170; J1644; J1885; J2405; J2704; J3475

== ENCOUNTER 2022-05-10 00:41 | Outpatient (CLI) | payer BC, SELFPAY ==
--- NOTE | 2022-05-10 11:02 | DI.DEXA_ITS ---
Exam(s) XR DEXA BONE DENSITY W/WO RODDY EXAM: XR DEXA BONE DENSITY W/WO RODDY CLINICAL HISTORY: FX RIB,S22.32XA,SCREENING FOR OSTEOPOROSIS TECHNIQUE: [employer] Horizon C densitometer analysis of left hip, lumbar spine and left forearm. COMPARISON: None FINDINGS: Lateral view of the thoracic and lumbar spine shows no evidence of compression fractures. Bone mineral density measurements of the lumbar spine correspond to a total T-score of -2.5, in the osteoporotic range. Bone mineral density measurements of the left hip correspond to a total T-score of -0.4. The femora l neck T-score is -2.1, in the osteopenic range.. The left forearm bone mineral density measurements correspond to a T-score of the distal 3rd of -1.4 , in the osteopenic range.. IMPRESSION: Osteoporosis of the lumbar spine. Osteopenia of the left hip and forearm.
== END 2022-05-10 01:01 ==
LOC: DI 00:41
PROVIDERS: PCP Nurse Practitioner Family; Visit Provider Family Medicine
DX: Z13.820 Encounter for screening for osteoporosis (principal); M81.0 Age-related osteoporosis without current pathological fracture; M85.89 Other specified disorders of bone density and structure, multiple sites
CPT/HCPCS: 77080

== ENCOUNTER 2022-08-28 02:56 | Outpatient (CLI) | payer BC, SELFPAY ==
--- NOTE | 2022-08-28 | DI.MAMMO_ITS ---
Exam(s) MAMMO SCREENING EXAM: MAMMO SCREENING CLINICAL HISTORY: SCREENING, Z12.39 TECHNIQUE: Bilateral full field digital CC and MLO mammographic images were obtained with 3D tomosyn thesis and utilizing computer aided detection (CAD). COMPARISON: Available for comparison. FINDINGS: Masses/Architectural Distortion: None seen. There is a stable nodular density in the upper retroareol ar region of the right breast on the mediolateral oblique view. Microcalcifications: No suspicious pleomorphic-type are seen. Skin Thickening/Nipple Retraction: None. IMPRESSION: 1. No significant interval change with no specific features of malignancy noted. 2. Unless there is more urgent need, screening mammography is recommended, as per [employer] guidelines. BI-RADS Category 2 - Benign Findings Breast Density - Category B - Scattered areas of fibroglandular density Breast density category C or D implies that the patient has dense breast tissue. Dense breast tissue is very common and is not abnormal but dense breast tissue can make it harder to find cancer on a ma mmogram. Also, dense breast tissue may increase their breast cancer risk. This information about the result of the mammogram report was provided to the patient to raise their awareness. Use this report when you speak with the patient about their risks for breast cancer, which includes their family hist ory. At that time, you may recommend for more screening tests (Ultrasound or MRI) as they might be us eful based on their risk. A negative radiographic report should not delay biopsy if a dominant or clinically suspicious mass is present. Up to ten percent of cancers are not identified on mammography. A negative report may reinforce clinical impression. Adenosis and dense breasts may obscure an underlying neoplasm. False positive reports average 6 to 10%. Patient will receive a letter notifying them of these results.
== END 2022-08-28 03:16 ==
LOC: DI 02:56
PROVIDERS: PCP Nurse Practitioner Family; Visit Provider Nurse Practitioner Family
DX: Z12.31 Encounter for screening mammogram for malignant neoplasm of breast (principal)
CPT/HCPCS: 77063; 77067